=== PATIENT | female | born 1940 | race Caucasian/White ===

== ENCOUNTER 2018-06-25 15:10 | Outpatient (CLI) | payer MEDICARE, OTHER | END 2018-06-25 15:12 | LOC: NEPHRO 15:10 | PROVIDERS: ATTEND Internal Medicine Nephrology | DX: N17.9 Acute kidney failure, unspecified (principal); I11.0 Hypertensive heart disease with heart failure; I50.9 Heart failure, unspecified; E87.3 Alkalosis; E87.6 Hypokalemia | CPT/HCPCS: G0463 ==

== ENCOUNTER 2018-06-27 13:50 | Outpatient (CLI) | payer MEDICARE, OTHER ==
[2018-06-27 14:17] LABS: BASOPHILS % 0.7 % (0.0-1.5); EOSINOPHILS % 6.2 % (0.0-6.8); MEAN CORPUSCULAR HEMOGLOBIN 32.2 pg (28.0-34.0); MONOCYTES % 8.8 % (0.0-11.0); NEUTROPHILS # 3.4 # k/uL (1.4-7.7)
[2018-06-27 14:30] LABS: APPEARANCE,URINE CLEAR (CLEAR); COLOR,URINE YELLOW (YELLOW); OCCULT BLOOD,URINE TRACE-LYSED (NEGATIVE); PH URINE 6.5 (5.0 - 8.0); UROBILINOGEN URINE 0.2 Eu (0.2-1.0)
[2018-06-27 14:36] LABS: eGFR (Non-African) > 60
--- NOTE | 2018-06-27 15:07 | Diagnostic Imaging Report ---
JOCELYNN BARBER [facility] [id number] [facility] [address] [place] [address]. [id number] Report Submission Date: June 27, 2018 2:42:00 PM CDT Patient Study Name: DUY COLLIER Date: June 27, 2018 2:12:14 PM CDT Modality Type: US Gender: F Description: US RETROPERITONEAL COMPLETE : 42 Institution: [facility] Physician: JOCELYNN BARBER EXAMINATION: US RETROPERITONEAL COMPLETE HISTORY: us renal blodd in urine and back pain for 1 month HTN, EMILY, CHF COMPARISON: None FINDINGS: Right kidney: 10.1 x 6.1 x 5.7 cm Left kidney: 12.1 x 4.6 x 4.4 cm Renal parenchymal echogenicity is normal. There is no evidence of a solid renal mass, renal calculi, or hydronephrosis. Blood flow is seen in the renal arteries and veins. The urinary bladder is nondistended. IMPRESSION: Normal renal size. No evidence of nephrolithiasis, hydronephrosis, or solid renal mass. Electronically signed on June 27, 2018 2:42:00 PM CDT by: Michael MARK
== END 2018-06-27 13:53 ==
LOC: RAD 13:50
PROVIDERS: ATTEND Internal Medicine Nephrology
DX: R82.90 Unspecified abnormal findings in urine (principal); N17.9 Acute kidney failure, unspecified; I10 Essential (primary) hypertension; I50.9 Heart failure, unspecified
CPT/HCPCS: 36415; 76770; 80053; 81002; 84100; 85025; 87086